=== PATIENT | male | born 1995 | race Two or more races ===

== ENCOUNTER 2022-08-02 05:31 | Emergency (ER) | payer OTHER ==
[~2022-08-02] VITALS: Ht 167.6 cm; Wt 90.7 kg
[2022-08-02] MEDS ORDERED: IBUPROFEN 800 MG TABLET PO ONE (05:45)
[2022-08-02] MEDS ORDERED: PANTOPRAZOLE SODIUM 40 MG TABLET.DR PO ONE ×3 (05:45→06:06)
[2022-08-02] MEDS ORDERED: IBUPROFEN 800 MG TABLET ONE ×2 (06:02→06:06)
--- NOTE | 2022-08-02 06:06 | NUR ---
Teresa reis in EDM - 08/02/22 at 0609 by [employer] patient medically cleared by DR. Javed. Patient realised to custody of [facility] officer TRI #[id number].
[2022-08-02 06:09] VITALS: BP 118/71
--- NOTE | 2022-08-02 06:09 | NUR ---
patient medically cleared by DR. Javed. Patient realised to custody of [employer] officer TRI #[id number]. /Kofi Hernandez RN
== END 2022-08-02 06:10 ==
LOC: ER 05:55
DX: R50.9 Fever, unspecified (principal); Z20.822 Contact with and (suspected) exposure to COVID-19; K21.9 Gastro-esophageal reflux disease without esophagitis; M54.2 Cervicalgia; S00.83XA Contusion of other part of head, initial encounter; V48.5XXA Car driver injured in noncollision transport accident in traffic accident, initial encounter; Y92.410 Unspecified street and highway as the place of occurrence of the external cause; Z88.0 Allergy status to penicillin
CPT/HCPCS: A4663